=== PATIENT | female | born 1975 | race Two or more races ===

== ENCOUNTER 2018-06-07 05:00 | Emergency (ER) | payer OTHER ==
[~2018-06-07] VITALS: Ht 157.5 cm; Wt 71.7 kg
[2018-06-07] MEDS ORDERED: LASIX40 MG (05:14)
[2018-06-07] MEDS ORDERED: ZOCOR20 MG (05:15)
[2018-06-07] MEDS ORDERED: LOPRESSOR25 MG (05:15)
[2018-06-07] MEDS ORDERED: KETO10TA2 PO (07:01)
== END 2018-06-07 06:57 | disposition home or self-care (01) ==
LOC: ER 05:00
DX: S46.911A Strain of unspecified muscle, fascia and tendon at shoulder and upper arm level, right arm, initial encounter (principal); X58.XXXA Exposure to other specified factors, initial encounter; Y93.89 Activity, other specified; Y92.89 Other specified places as the place of occurrence of the external cause; Y99.8 Other external cause status